=== PATIENT | male | born 1970 | race Two or more races ===

== ENCOUNTER 2024-07-01 12:18 | Emergency (ER) | payer MEDICAID ==
[~2024-07-01] VITALS: Ht 170.2 cm; Wt 74.7 kg
[2024-07-01] MEDS ORDERED: HYDR-4902 PO (14:29)
[2024-07-01] MEDS ORDERED: IBU600T PO (14:30)
[2024-07-01 14:31] VITALS: BP 127/71; PULSE 102; RESP 15; TEMP 97.8; O2SAT 96
== END 2024-07-01 14:55 | disposition home or self-care (01) ==
LOC: ER 12:18
DX: S01.111A Laceration without foreign body of right eyelid and periocular area, initial encounter (principal); R07.89 Other chest pain; Y04.2XXA Assault by strike against or bumped into by another person, initial encounter; Y93.89 Activity, other specified; Y92.89 Other specified places as the place of occurrence of the external cause; Y99.8 Other external cause status
CPT/HCPCS: 70450; 71045